=== PATIENT | male | born 1960 | race Caucasian/White ===

== ENCOUNTER 2022-10-22 14:16 | Emergency (ER) | payer BC ==
[~2022-10-22] VITALS: Ht 182.9 cm; Wt 117.9 kg
[2022-10-22] MEDS ORDERED: KETOROLAC TROMETHAMINE 30 MG/ML VIAL IM STA (14:30)
[2022-10-22] MEDS ORDERED: PREDNISONE 20 MG TAB PO ONE (14:30)
[2022-10-22] MEDS ORDERED: BACLOFEN10 MG PO (15:11)
[2022-10-22] MEDS ORDERED: KETOROLAC TROME10 MG PO (15:12)
[2022-10-22] MEDS ORDERED: SALONPAS PATCH1 EAC1 EXT (15:14)
[2022-10-22] MEDS ORDERED: KETOROLAC TROMETHAMINE 30 MG/ML VIAL ONE (15:18)
[2022-10-22] MEDS ORDERED: PREDNISONE 20 MG TAB ONE (15:18)
== END 2022-10-22 15:34 | disposition home or self-care (01) ==
LOC: FSED 14:31
DX: M54.50 Low back pain, unspecified (principal); G89.29 Other chronic pain; W18.49XA Other slipping, tripping and stumbling without falling, initial encounter; Y93.01 Activity, walking, marching and hiking; Y92.89 Other specified places as the place of occurrence of the external cause
CPT/HCPCS: 99283; J1885; J7512